=== PATIENT | male | born 1970 | race Native Hawaiian/Other Pacific Islander ===

== ENCOUNTER 2021-04-04 17:46 | Inpatient (IN) | payer OTHER, SELFPAY ==
[~2021-04-04] VITALS: Ht 172.7 cm; Wt 60.8 kg
--- NOTE | 2021-04-04 18:01 | NUR ---
BIB [facility] FROM A PHARMACY,S/P SYNCOPAL EPISODE. THE PATIENT IS ALERT AND ORIENTED X4. DENIES PAIN. IN ROOM AIR AND DENIES SOB. RESPIRATION REGULAR AND UNLABORED. THE PATIENT IS NOTED WITH NON-PRODUCTIVE COUGH. ATTACHED TO THE MONITOR.
[2021-04-04 18:58] LABS: BASOPHILS # (AUTO) 0.1 K/uL (0.0-0.2); BASOPHILS % (AUTO) 0.9 % (0.0-2.0); EOSINOPHILS % (AUTO) 0.5 % (0.0-6.0); HEMATOCRIT 46 % (39-51); HEMOGLOBIN 15.8 g/dL (13.5-17.5); LYMPHOCYTES # (AUTO) 0.9 K/uL (0.8-4.8); LYMPHOCYTES % (AUTO) 13.2 % (20.0-44.0); MEAN CORPUSCULAR HGB CONC 34 g/dl (31.0-36.0); MEAN CORPUSCULAR VOLUME 94 fL (80-96); MONOCYTES % (AUTO) 15.4 % (2.0-12.0); NEUTROPHILS # (AUTO) 4.7 K/uL (1.8-8.9); PLATELET COUNT (AUTO) 283 K/uL (150-450); RED BLOOD CELL COUNT(AUTO) 4.96 MIL/uL (4.5-6.0); WHITE BLOOD COUNT (AUTO) 6.7 K/uL (4.3-11.0)
--- NOTE | 2021-04-04 19:04 | NUR ---
covid swab done and sent to the lab
[2021-04-04 19:08] LABS: CALCIUM, SERUM 8.5 mg/dL (8.5-10.1); CARBON DIOXIDE 22 mmol/L (21-32); CHLORIDE 110 mmol/L (98-107); GLUCOSE 106 mg/dL (74-106); POTASSIUM 3.1 mmol/L (3.5-5.1); SODIUM SERUM 146 mmol/L (136-145); UREA NITROGEN, BLOOD 18 mg/dL (7-18)
[2021-04-04 19:20] LABS: ALANINE AMINOTRANSFERASE 71 U/L (12-78); ALBUMIN 2.9 g/dL (3.4-5.0); ALKALINE PHOSPHATASE 76 U/L (46-116); ASPARTATE AMINOTRANSFERASE 58 U/L (15-37); BILIRUBIN,TOTAL 0.3 mg/dL (0.2-1.0)
[2021-04-04 19:23] LABS: CREATINE KINASE, TOTAL 38 U/L (39-308); FERRITIN 865 ng/mL (8-388)
[2021-04-04 19:24] LABS: C-REACTIVE PROTEIN 4.1 mg/dL (0.0-0.9)
[2021-04-04 19:30] LABS: D-DIMER 7.49 mg/L(FEU (0.17-0.50)
--- NOTE | 2021-04-04 19:40 | NUR ---
visited pt at bedside. pt denies sany discomfort call light left at bedside. alert and oriented x4. will monitor.
[2021-04-04] MEDS ORDERED: IOHEXOL-350 100 ML VIAL IV ONE (19:49)
[2021-04-04] MEDS ORDERED: CT SWABBABLE VALVE TRANS SET 1 EA INFUS.SET MC ONE (19:50)
[2021-04-04] MEDS ORDERED: IV NS 0.9% 250 ML IV ONE (19:50)
--- NOTE | 2021-04-04 20:01 | NUR ---
PT GOING UP FOR CT.
--- NOTE | 2021-04-04 20:10 | NUR ---
PT RETURNED FROM CT.
[2021-04-04 20:20] LABS: BAND % (MANUAL) 5 % (0.0-5.0); LYMPHOCYTES % (MANUAL) 11 % (16-48); MONOCYTES % (MANUAL) 14 % (0-11.0); NEUTROPHILS % (MANUAL) 70 (42-76)
[2021-04-04] MEDS ORDERED: DEXAMETHASONE SOD PHOSPHATE 10 MG/ML VIAL IV ONE (21:30)
--- NOTE | 2021-04-05 00:09 | NUR ---
REPORT GIVEN TO ALIX AMEZCUA.
--- NOTE | 2021-04-05 01:15 | NUR ---
ADMIT NOTE RECEIVED PATIENT FROM ER TRANSFERRED TO ROOM 110. PATIENT ABLE TO SAFELY AMBULATE TO BED. ALERT AND ORIENTED X4, ABLE TO MAKE NEEDS KNOWN. ON ROOM AIR, O2 SAT 96%. NO SIGNS OF RESPIRATORY DISTRESS. NOTED WITH NON-PRODUCTIVE COUGH. PUT ON TELE MONITOR SR 70'S. DENIES ANY PAIN OR DISCOMFORT. IV ACCESS ON LEFT AC #18, FLUSHED ASEPTICALLY. SKIN ASSESSMENT DONE, SKIN IS CLEAN AND INTACT. ORIENTED PATIENT TO ROOM AND CALL LIGHT. BED LOCKED AND IN LOWEST POSITION. CALL LIGHT WITHIN REACH. ALL NEEDS ANTICIPATED.
[2021-04-05 01:22] VITALS: BP 122/81
--- NOTE | 2021-04-05 01:25 | NUR ---
transferred pt to bed 110
[2021-04-05] MEDS ORDERED: ONDANSETRON HCL/PF 4 MG/2 ML VIAL IVP PRN (02:00)
[2021-04-05] MEDS ORDERED: ACETAMINOPHEN 325 MG TABLET PO PRN (02:00)
[2021-04-05] MEDS ORDERED: Z GUARD REMEDY 2 OZ OINT TP PRN (02:00)
[2021-04-05] MEDS ORDERED: IV 1/2NS 1000 ML 1,000 ML IV PRN (02:00)
[2021-04-05 04:00] VITALS: BP 118/69
--- NOTE | 2021-04-05 06:37 | NUR ---
RN NOTE PATIENT RESTING IN BED, ALERT AND ORIENTED X4. ON ROOM AIR, O2 SAT 96%. NO SIGNS OF RESPIRATORY DISTRESS. DENIES ANY PAIN OR DISCOMFORT. IV ACCESS ON LEFT AC #18 RUNNING IV 1/2 NS @ 75ML/HR, NO SIGNS OF INFILTRATION. ALL NEEDS ATTENDED PROMPTLY. BED LOCKED AND IN LOWEST POSITION. CALL LIGHT WITHIN REACH. WILL ENDORSE TO AM SHIFT.
[2021-04-05] MEDS ORDERED: MOME13HF INH (07:24)
[2021-04-05] MEDS ORDERED: PANTOPRAZOLE 40 MG TABLET.DR PO SCH (07:30)
--- NOTE | 2021-04-05 07:58 | NUR ---
RN OPENING NOTES RECEIVED PT RESTING IN BED, A/OX4. ON ROOM AIR, O2 SAT 96%. NO DISTRESS NOTED. NO C/O PAIN AT THIS TIME. IV ACCESS ON LEFT AC #18 RUNNING IV 1/2 NS @ 75ML/HR, PATENT WITH NO SIGNS OF INFECTION. BED LOCKED AND IN LOWEST POSITION. CALL LIGHT WITHIN REACH. WILL CONTINUE TO MONITOR..
[2021-04-05 08:00] VITALS: BP 135/93
[2021-04-05] MEDS ORDERED: DEXAMETHASONE SOD PHOSPHATE 10 MG/ML VIAL IV SCH (09:00)
[2021-04-05] MEDS ORDERED: ENOXAPARIN SODIUM 40 MG/0.4 ML DISP.SYRIN SQ SCH (09:00)
--- NOTE | 2021-04-05 11:13 | NUR ---
AMA NOTE; PT EXPRESSED WSHES TO LEAVE AMA. EDUCATION REGARDING RISKS OF COVID AND TRANSMISSION TO COMMUNITY. PT UNDERSTANDS RISKS AND STILL WANTS TO LEAVE. MD NOTIFIED, MD AGGRESS WITH PT WISHES. PT A/OX4, AMBULATORY, 02SAT 100% IN RA. ALL DISCHARGE EDUCATION DONE, PT STATES UNDERSTANDING. PT LEFT WITH ALL BELONGINGS, VIA PRIVATE CAR. PICKED UP BY FRIEND GLORIA.
== END 2021-04-05 11:00 | disposition left against medical advice (07) | DRG 177 ==
LOC: ER 17:47 → TELE1 04-05 00:22
PROVIDERS: ADMIT Nurse Practitioner Acute Care; ATTEND Internal Medicine
DX: U07.1 COVID-19 (principal); J12.82 Pneumonia due to coronavirus disease 2019; E87.1 Hypo-osmolality and hyponatremia; D68.59 Other primary thrombophilia; E87.6 Hypokalemia; G90.8 Other disorders of autonomic nervous system
CPT/HCPCS: 36415; 71045-TC; 80053-TC; 82550-TC; 82728-TC; 83605-TC; 83615-TC; 83880; 84484-TC; 85025-TC; 85378-TC; 85730-TC; 86140-TC; 87040-TC; 87081-TC; G0378; J1100; J1650; J3490; J7050; Q9967; U0003